=== PATIENT | male | born 1950 | race Caucasian/White ===

== ENCOUNTER 2020-09-29 16:03 | Inpatient (IN) | payer MEDICARE ==
[2020-09-29] MEDS ORDERED: ACETAMINOPHEN TAB 500 MG TAB PO STA (16:42)
[2020-09-29 17:06] LABS: Basophils % (A) 1 %; Eosinophils % (A) 0 %; HCT 48.7 % (39.0-53.0); HGB 15.5 gm/dL (13.0-17.5); Lymphocytes # (A) 0.6 k/uL (1.0-4.8); Lymphocytes % (A) 14 %; MCH 27.4 pg (25.0-35.0); MCHC 31.8 g/dL (31.0-37.0); MCV 86.2 fL (80.0-100.0); Mean Platelet Volume 8.2; Monocytes # (A) 0.4 k/uL (0-1.0); Monocytes % (A) 10 %; Neutrophils # (A) 3.2 k/uL (1.3-7.7); Neutrophils % (A) 73 %; Platelet Count 194 k/uL (150-450); RBC 5.65 m/uL (4.30-5.90); RDW 15.2 % (11.5-15.5); WBC 4.4 k/uL (3.8-10.6)
[2020-09-29] MEDS ORDERED: ONDANSETRON 4 MG/2 ML VIAL IVP STA (17:07)
[2020-09-29 17:18] LABS: ALT 19 U/L (4-49); AST 29 U/L (17-59); African American GFR (CKD) >90 (>60 ml/min/1.73 sqM); Albumin 4.2 g/dL (3.5-5.0); Alkaline Phosphatase 83 U/L (38-126); Anion Gap 11 mmol/L; Blood Urea Nitrogen 19 mg/dL (9-20); C Reactive Protein 54.4 mg/L (<10.0); Calcium 9.3 mg/dL (8.4-10.2); Carbon Dioxide 25 mmol/L (22-30); Chloride 100 mmol/L (98-107); Glucose 110 mg/dL (74-99); LDH 530 U/L (313-618); Magnesium 1.7 mg/dL (1.6-2.3); Non-African American GFR(CKD) 88 (>60 ml/min/1.73 sqM); Potassium 4.1 mmol/L (3.5-5.1); Sodium 136 mmol/L (137-145); Total Bilirubin 0.5 mg/dL (0.2-1.3)
[2020-09-29 17:30] LABS: D-Dimer 0.39 mg/L FEU (<0.60); INR 0.9 (<1.2); Partial Thromboplastin Time 26.7 sec (22.0-30.0); Prothrombin Time 9.6 sec (9.0-12.0)
--- NOTE | 2020-09-29 17:31 | XR ---
EXAMINATION TYPE: XR chest 1V portable DATE OF EXAM: 09/29/2020 COMPARISON: NONE HISTORY: Fever TECHNIQUE: Single frontal view of the chest is obtained. FINDINGS: Technique is somewhat apical lordotic and rotated, lung volumes are low. There are overlyin g cardiac leads. There is no pleural effusion or pneumothorax seen. Question some patchy density charis aterally. The cardiac silhouette size is within normal limits. The osseous structures are intact. IMPRESSION: Correlate for possible pneumonia, expiratory rotated exam
--- NOTE | 2020-09-29 17:51 | ED ---
General Adult HPI - General Chief complaint: Headache Stated complaint: NVD Time Seen by Provider: 09/29/20 16:41 Source: patient, family Mode of arrival: wheelchair Limitations: no limitations - History of Present Illness Initial comments: Dictation was produced using [employer] dictation software. please excuse any grammatical, word or spelling errors. This patient was cared for during a federal and state declared state of emergency secondary to Covid 19 Chief Complaint: 62-year-old male presents with 3 days of nasal congestion, body aches and constitutional symptoms. History of Present Illness: It is a 62-year-old male. He presents today with 3 days of symptoms of body aches, chills and fevers. He is also complaining of some nausea. Denies any vomiting. Patient states she's been symptomatic for the last 3 days. Yesterday he had a headache. He was seen at [facility] recently where he was discharged with sinus antibiotics. He was not tested for rotavirus at that time. Patient states his symptoms are persistent , they intubated emergency department. Patient denies any pain symptoms at the moment. Denies any abdominal pain. States his main symptom is nasal congestion. Denies any sore throat or runny nose. The ROS documented in this emergency department record has been reviewed and confirmed by me. Those systems with pertinent positive or negative responses have been documented in the HPI. All other systems are other negative and/or noncontributory. PHYSICAL EXAM: General Impression: Alert and oriented x3, not in acute distress HEENT: Normocephalic atraumatic, extra-ocular movements intact, pupils equal and reactive to light bilaterally, dry mucous membranes Cardiovascular: Heart regular rate and rhythm Chest: Able to complete full sentences, no retractions, no tachypnea Abdomen: abdomen soft, non-tender, non-distended, no organomegaly Musculoskeletal: Pulses present and equal in all extremities, no peripheral edema Motor: no focal deficits noted Neurological: CN II-XII grossly intact, no focal motor or sensory deficits noted Skin: Intact with no visualized rashes Psych: Normal affect and mood ED course: 70-year-old male presents with chief complaint of constitutional symptoms. He was seen recently at [facility] review is given antibiotics to treat possible sinus or upper respiratory infection. Vital signs upon arrival shows tachycardia 11.4, heart rate of 103, rest of vital signs within acceptable limits. Laboratory evaluation obtained. CBC unremarkable. Lymphocytosis of 0.6 mildly depressed. Coag panel negative. D-dimer 0.39. Metabolic panel is unremarkable. Influenza is negative. Chest x-ray shows patchy densities bilaterally. Clinical presentation concerning for possible pneumonia versus Covid 19. coronavirus testing pending. Patient given ceftriaxone and azithromycin. She also given 6 mg of IV Decadron. Patient be admitted case is discussed with Dr. Staples's nurse practitioner who is willing to accept patients care. EKG interpretation: Ventricular rate 90, normal sinus rhythm,. Interval 1:30, QRS 120, QTC 472. No MO prolongation, no QTC prolongation, no ST or T-wave changes noted. No old EKG for comparison. Overall this EKG is nonspecific. - Related Data Home Medications Medication Instructions Recorded Confirmed Amoxicillin/Potassium Clav 1 tab PO BID 09/29/20 09/29/20 [Augmentin 875-125 Tablet] Famotidine 20 mg PO BID 09/29/20 09/29/20 LORazepam [Ativan] 0.5 mg PO BID PRN 09/29/20 09/29/20 Loratadine 10 mg PO DAILY 09/29/20 09/29/20 metHOTREXate sodium [Methotrexate] 20 mg PO ORTA 09/29/20 09/29/20 predniSONE 2.5 mg PO BID 09/29/20 09/29/20 Allergies Allergy/AdvReac Type Severity Reaction Status Date / Time No Known Allergies Allergy Verified 09/29/20 18:13 Review of Systems ROS Statement: Those systems with pertinent positive or pertinent negative responses have been documented in the HPI. ROS Other: All systems not noted in ROS Statement are negative. Past Medical History Past Medical History: GERD/Reflux, Hypertension Additional Past Medical History / Comment(s): polymyalgia rheumatica History of Any Multi-Drug Resistant Organisms: None Reported Past Surgical History: Hernia Repair, Orthopedic Surgery Past Psychological History: No Psychological Hx Reported Smoking Status: Never smoker Past Alcohol Use History: None Reported Past Drug Use History: None Reported General Exam Limitations: no limitations Course Vital Signs 09/29/20 09/29/20 09/29/20 16:13 17:00 18:00 Temperature 101.4 F H 99.2 F Pulse Rate 103 H 92 82 Respiratory 22 18 18 Rate Blood Pressure 154/69 132/109 136/98 O2 Sat by Pulse 99 100 99 Oximetry Medical Decision Making - Lab Data Result diagrams: 09/29/20 16:48 09/29/20 16:48 Lab Results 09/29/20 09/29/20 09/29/20 Range/Units 16:48 16:48 16:48 WBC 4.4 (3.8-10.6) k/uL RBC 5.65 (4.30-5.90) m/uL Hgb 15.5 (13.0-17.5) gm/dL Hct 48.7 (39.0-53.0) % MCV 86.2 (80.0-100.0) fL MCH 27.4 (25.0-35.0) pg MCHC 31.8 (31.0-37.0) g/dL RDW 15.2 (11.5-15.5) % Plt Count 194 (150-450) k/uL Neutrophils % 73 % Lymphocytes % 14 % Monocytes % 10 % Eosinophils % 0 % Basophils % 1 % Neutrophils # 3.2 (1.3-7.7) k/uL Lymphocytes # 0.6 L (1.0-4.8) k/uL Monocytes # 0.4 (0-1.0) k/uL Eosinophils # 0.0 (0-0.7) k/uL Basophils # 0.0 (0-0.2) k/uL PT 9.6 (9.0-12.0) sec INR 0.9 (<1.2) APTT 26.7 (22.0-30.0) sec D-Dimer 0.39 (<0.60) mg/L FEU Sodium 136 L (137-145) mmol/L Potassium 4.1 (3.5-5.1) mmol/L Chloride 100 (98-107) mmol/L Carbon Dioxide 25 (22-30) mmol/L Anion Gap 11 mmol/L BUN 19 (9-20) mg/dL Creatinine 0.89 (0.66-1.25) mg/dL Est GFR (CKD-EPI)AfAm >90 (>60 ml/min/1.73 sqM) Est GFR (CKD-EPI)NonAf 88 (>60 ml/min/1.73 sqM) Glucose 110 H (74-99) mg/dL Plasma Lactic Acid Kalia (0.7-2.0) mmol/L Calcium 9.3 (8.4-10.2) mg/dL Magnesium 1.7 (1.6-2.3) mg/dL Total Bilirubin 0.5 (0.2-1.3) mg/dL AST 29 (17-59) U/L ALT 19 (4-49) U/L Alkaline Phosphatase 83 (38-126) U/L Lactate Dehydrogenase 530 (313-618) U/L C-Reactive Protein 54.4 H (<10.0) mg/L Total Protein 7.0 (6.3-8.2) g/dL Albumin 4.2 (3.5-5.0) g/dL Influenza Type A RNA (Not Detectd) Influenza Type B (PCR) (Not Detectd) 09/29/20 09/29/20 Range/Units 16:48 16:48 WBC (3.8-10.6) k/uL RBC (4.30-5.90) m/uL Hgb (13.0-17.5) gm/dL Hct (39.0-53.0) % MCV (80.0-100.0) fL MCH (25.0-35.0) pg MCHC (31.0-37.0) g/dL RDW (11.5-15.5) % Plt Count (150-450) k/uL Neutrophils % % Lymphocytes % % Monocytes % % Eosinophils % % Basophils % % Neutrophils # (1.3-7.7) k/uL Lymphocytes # (1.0-4.8) k/uL Monocytes # (0-1.0) k/uL Eosinophils # (0-0.7) k/uL Basophils # (0-0.2) k/uL PT (9.0-12.0) sec INR (<1.2) APTT (22.0-30.0) sec D-Dimer (<0.60) mg/L FEU Sodium (137-145) mmol/L Potassium (3.5-5.1) mmol/L Chloride (98-107) mmol/L Carbon Dioxide (22-30) mmol/L Anion Gap mmol/L BUN (9-20) mg/dL Creatinine (0.66-1.25) mg/dL Est GFR (CKD-EPI)AfAm (>60 ml/min/1.73 sqM) Est GFR (CKD-EPI)NonAf (>60 ml/min/1.73 sqM) Glucose (74-99) mg/dL Plasma Lactic Acid Kalia 1.4 (0.7-2.0) mmol/L Calcium (8.4-10.2) mg/dL Magnesium (1.6-2.3) mg/dL Total Bilirubin (0.2-1.3) mg/dL AST (17-59) U/L ALT (4-49) U/L Alkaline Phosphatase (38-126) U/L Lactate Dehydrogenase (313-618) U/L C-Reactive Protein (<10.0) mg/L Total Protein (6.3-8.2) g/dL Albumin (3.5-5.0) g/dL Influenza Type A RNA Not Detected (Not Detectd) Influenza Type B (PCR) Not Detected (Not Detectd) Disposition Clinical Impression: Pneumonia Disposition: ADMITTED IP TO THIS [facility] Condition: Fair Referrals: Cooper Staples MD [Primary Care Provider] - 1-2 days Decision Time: 18:46
[2020-09-29] MEDS ORDERED: cefTRIAXone IN SWFI 1,000 MG/10 ML SYRINGE IVP STA (18:06)
[2020-09-29] MEDS ORDERED: AZITHROMYCIN 500 MG in SODIUM CHLORIDE 0.9% 250 ML IVPB STA (18:06)
[2020-09-29] MEDS ORDERED: CODEINE 30 MG TAB PO STA (18:35)
[2020-09-29] MEDS ORDERED: METOCLOPRAMIDE 5 MG/ML 2 ML VIAL IVP STA (18:37)
[2020-09-29] MEDS ORDERED: NALOXONE 0.4 MG/ML 1 ML VIAL IV PRN (18:43)
[2020-09-29] MEDS ORDERED: ACETAMINOPHEN TAB 325 MG TAB PO PRN (18:43)
[2020-09-29] MEDS ORDERED: SODIUM CHLORIDE 0.9% 1,000 ML IV SCH (18:45)
[2020-09-29] MEDS ORDERED: MORPHINE SULFATE 4 MG/ML SYRINGE IV STA (19:29)
[2020-09-29] MEDS: DEXAMETHASONE SOD PHOSPHATE 10 MG/ML 1 ML VIAL IV SCH (21:02)
[2020-09-29] MEDS ORDERED: LORazepam 2 MG/ML INJ IV PRN (21:34)
[2020-09-29 23:49] LABS: Ferritin 133.9 ng/mL (22.0-322.0)
[2020-09-30] MEDS ORDERED: ONDANSETRON 4 MG/2 ML VIAL IVP STA (05:11)
[2020-09-30] MEDS ORDERED: METOCLOPRAMIDE 5 MG/ML 2 ML VIAL IVP PRN (07:17)
[2020-09-30] MEDS ORDERED: PNEUMONIA PROTOCOL UTILIZED 1 EACH MISC PO PRN (07:27)
[2020-09-30] MEDS: DEXAMETHASONE SOD PHOSPHATE 10 MG/ML 1 ML VIAL IV SCH (10:08)
--- NOTE | 2020-09-30 10:09 | P.HPIM ---
History of Present Illness H&P Date: 09/30/20 Chief Complaint: Generalized malaise 70-year-old male presented to the emergency room for complaint of generalized malaise with associated fevers, chills, nausea, and headache. Patient additional complaint of intermittent shortness of breath.patient stated these symptoms have been lasting for 3 days, [facility] for a sinus infection. Upon arrival to the emergency department patient was febrile, tachycardic, and short of breath. Extensive diagnostic workup for the emergency department revealed pneumonia. Review of Systems Constitutional: Reports chills, Reports fever, Reports sweats, Reports weakness Ears, nose, mouth and throat: Reports sinus pain Cardiovascular: Reports shortness of breath Respiratory: Reports congestion, Reports cough with sputum Gastrointestinal: Reports nausea, Reports vomiting Musculoskeletal: Reports muscle weakness (Generalized) Neurological: Reports weakness Psychiatric: Reports anxiety Endocrine: Reports fatigue Past Medical History Past Medical History: GERD/Reflux, Hypertension Additional Past Medical History / Comment(s): polymyalgia rheumatica History of Any Multi-Drug Resistant Organisms: None Reported Past Surgical History: Hernia Repair, Orthopedic Surgery Past Anesthesia/Blood Transfusion Reactions: No Reported Reaction Past Psychological History: No Psychological Hx Reported Smoking Status: Never smoker Past Alcohol Use History: None Reported Past Drug Use History: None Reported Medications and Allergies Home Medications and Allergies Comment(s): Home medications and ALLERGIES reviewed Home Medications Medication Instructions Recorded Confirmed Type Amoxicillin/Potassium Clav 1 tab PO BID 09/29/20 09/29/20 History [Augmentin 875-125 Tablet] Famotidine 20 mg PO BID 09/29/20 09/29/20 History LORazepam [Ativan] 0.5 mg PO BID PRN 09/29/20 09/29/20 History Loratadine 10 mg PO DAILY 09/29/20 09/29/20 History metHOTREXate sodium [Methotrexate] 20 mg PO ORTA 09/29/20 09/29/20 History predniSONE 2.5 mg PO BID 09/29/20 09/29/20 History Allergies Allergy/AdvReac Type Severity Reaction Status Date / Time No Known Allergies Allergy Verified 09/29/20 18:13 Physical Exam Vitals: Vital Signs Temp Pulse Pulse Resp BP BP Pulse Ox 09/30/20 07:00 97.8 F 111 H 19 139/95 97 09/30/20 05:00 99.2 F 112 H 16 152/95 96 09/30/20 01:00 98.2 F 96 18 160/91 97 09/29/20 21:00 98 16 142/92 97 09/29/20 18:48 113 H 145/83 09/29/20 18:00 99.2 F 82 18 136/98 99 09/29/20 17:00 92 18 132/109 100 09/29/20 16:13 101.4 F H 103 H 22 154/69 99 Intake and Output 09/29/20 09/30/20 09/30/20 22:59 06:59 14:59 Output Total 1 Balance -1 Output: Urine 1 Other: Weight 90.718 kg - Constitutional General appearance: morbidly obese - EENT Eyes: EOMI, PERRLA ENT: pharyngeal erythema Ears: bilateral: normal - Respiratory Respiratory: bilateral: rhonchi (bilateral posterior bases) - Cardiovascular Sinus tachycardia Heart rate: 111 Rhythm: regular Heart sounds: normal: S1, S2 - Gastrointestinal General gastrointestinal: hyperactive bowel sounds, tenderness Localized gastrointestinal: tender: diffuse - Integumentary Integumentary: decreased turgor, pale - Neurologic Neurologic: CNII-XII intact - Musculoskeletal Musculoskeletal: generalized weakness - Psychiatric Psychiatric: A&O x's 3, appropriate affect, intact judgment & insight Results CBC & Chem 7: 09/29/20 16:48 09/29/20 16:48 Labs: Abnormal Lab Results - Last 24 Hours (Table) 09/29/20 09/29/20 Range/Units 16:48 16:48 Lymphocytes # 0.6 L (1.0-4.8) k/uL Sodium 136 L (137-145) mmol/L Glucose 110 H (74-99) mg/dL C-Reactive Protein 54.4 H (<10.0) mg/L Chest x-ray: report reviewed Thrombosis Risk Factor Assmnt - Choose All That Apply Each Factor Represents 1 point: Obesity (BMI >25) Each Risk Factor Represents 2 Points: Age 61-74 years Thrombosis Risk Factor Assessment Total Risk Factor Score: 3 Thrombosis Risk Factor Assessment Level: Moderate Risk Assessment and Plan Assessment: Pneumonia Abdominal pain with associated nausea and vomiting Polymyalgia rheumatica Hypertension GERD Obesity Plan: Pneumoniacontinue antibiotic therapy Abdominal pain with nausea vomiting continue IV hydration and antiemetics as needed Continue medical management Time with Patient: Greater than 30
[2020-09-30] MEDS ORDERED: PANTOPRAZOLE 40 MG/10 ML VIAL IVP SCH (12:45)
[2020-09-30] MEDS: SODIUM CHLORIDE 0.9% 1,000 ML IV SCH ×2 (17:09→17:14)
[2020-09-30] MEDS ORDERED: AZITHROMYCIN 500 MG in SODIUM CHLORIDE 0.9% 250 ML IVPB SCH (18:00)
[2020-09-30] MEDS: lisinopriL 20 MG TAB PO SCH (22:09)
[2020-10-01] MEDS: SODIUM CHLORIDE 0.9% 1,000 ML IV SCH ×2 (05:43→15:52)
[2020-10-01 06:26] LABS: Basophils % (A) 0 %; Eosinophils % (A) 0 %; HCT 42.5 % (39.0-53.0); HGB 13.8 gm/dL (13.0-17.5); Lymphocytes % (A) 13 %; MCH 28.4 pg (25.0-35.0); MCHC 32.5 g/dL (31.0-37.0); MCV 87.3 fL (80.0-100.0); Mean Platelet Volume 7.6; Monocytes # (A) 0.6 k/uL (0-1.0); Monocytes % (A) 8 %; Neutrophils # (A) 5.7 k/uL (1.3-7.7); Neutrophils % (A) 77 %; Platelet Count 217 k/uL (150-450); RBC 4.87 m/uL (4.30-5.90); RDW 14.7 % (11.5-15.5); WBC 7.5 k/uL (3.8-10.6)
[2020-10-01 08:04] VITALS: RESP 17
[2020-10-01] MEDS: lisinopriL 20 MG TAB PO SCH (08:28)
[2020-10-01] MEDS: DEXAMETHASONE SOD PHOSPHATE 10 MG/ML 1 ML VIAL IV SCH (08:28)
--- NOTE | 2020-10-01 08:55 | P.PN ---
Subjective Progress Note Date: 10/01/20 Principal diagnosis: Community acquired pneumonia Abdominal pain nausea and vomiting 70-year-old male resting in bed comfortably. Denies shortness of breath, fever, chills, and decreased nausea and vomiting. Patient denies any complaints at this time Objective - Vital Signs Vital signs: Vital Signs Temp 98.4 F 10/01/20 07:00 Pulse 90 10/01/20 07:00 Resp 17 10/01/20 07:00 BP 167/80 10/01/20 07:00 Pulse Ox 94 L 10/01/20 07:00 Intake & Output 09/30/20 10/01/20 10/01/20 18:59 06:59 18:59 Intake Total 60 Output Total 300 Balance -240 Weight 90.718 kg Intake: Intake, IV Titration 60 Amount Sodium Chloride 0.9% 1, 60 000 ml @ 20 mls/hr IV . Q24H [facility] Rx#:[id number] Output: Urine 300 Other: Voiding Method Urinal Urinal # Voids 2 # Bowel Movements 1 - Constitutional General appearance: Present: obese - EENT Eyes: Present: EOMI, PERRLA ENT: Present: normal oropharynx Ears: bilateral: normal - Neck Carotids: bilateral: upstroke normal Thyroid: bilateral: normal size - Respiratory Respiratory: bilateral: diminished (Posterior bases) - Cardiovascular Details: Normal sinus rhythm with a right bundle branch Heart rate: 84 Rhythm: regular Heart sounds: normal: S1, S2 - Gastrointestinal General gastrointestinal: Present: normal bowel sounds - Integumentary Integumentary: Present: normal, normal turgor - Neurologic Neurologic: Present: CNII-XII intact - Musculoskeletal Musculoskeletal: Present: gait normal - Psychiatric Psychiatric: Present: A&O x's 3, appropriate affect, intact judgment & insight - Labs CBC & Chem 7: 10/01/20 05:58 09/29/20 16:48 Labs: Microbiology - Last 24 Hours (Table) 09/29/20 16:48 Blood Culture - Preliminary Blood No Growth after 24 hours - Imaging and Cardiology Chest x-ray: report reviewed Assessment and Plan Assessment: Pneumonia Abdominal pain with associated nausea and vomiting Polymyalgia rheumatica Hypertension GERD Obesity Plan: Pneumoniacontinue antibiotic therapy Abdominal pain with nausea vomiting continue IV hydration and antiemetics as needed Covid 19test pending Continue medical management Time with Patient: Less than 30
[2020-10-01] MEDS ORDERED: PANTOPRAZOLE 40 MG TABLET PO SCH (09:00)
[2020-10-01 10:06] LABS: African American GFR (CKD) 106.4 (60.0-200.0); Albumin 4.1 g/dL (3.80-4.90); Albumin/Globulin Ratio 2.05 (1.60-3.17); Anion Gap 10.4 mmol/L (4.00-12.00); Calcium 8.8 mg/dL (8.7-10.3); Carbon Dioxide 24.6 mmol/L (21.6-31.8); Non-African American GFR(CKD) 91.8 (60.0-200.0); Potassium 3.7 mmol/L (3.5-5.5); Total Bilirubin 0.3 mg/dL (0.2-1.2); Total Protein 6.1 g/dL (6.2-8.2)
[2020-10-01 14:28] VITALS: BMI 30.4
[2020-10-01 15:29] VITALS: BP 138/80; PULSE 85; TEMP 98.6
--- NOTE | 2020-10-02 09:06 | P.DS ---
Providers Date of admission: 09/29/20 18:43 Expected date of discharge: 10/01/20 Attending physician: Cooper Staples Consults: None noted Primary care physician: Cooper Staples - Discharge Diagnosis(es) (1) Pneumonia Patient received IV antibiotics for community-acquired pneumonia amuck improved during hospital stay patient discharged on tweak where pneumonia pathway of oral antibiotics Status: Resolved Priority: Medium Hospital Course: Patient was sent to the emergency department for further evaluation recently see n prior to admission at [facility] in the emergency department and diagnosed with acute sinusitis and emergency room dilation as x-ray revealed [facility] pneumonia. Patient placed on IV antibiotics, tolerated patient's associated symptoms was abdominal pain with nausea and vomitingcontrolled with antiemetics and IV hydration patient sent home on azithromycin and Omnicef for community acquired pneumonia. Patient to follow-up in office in 1-2 days Assessment: Community-acquired pneumonia Abdominal painassociated nausea vomitingresolved Hypertension Hyperlipidemia GERD Anxiety Asthma Polymyalgia, Health Concerns: None noted Pertinent Studies: Chest x-rayrevealing pneumonia Procedures: None noted Patient Condition at Discharge: Fair Plan - Discharge Summary Discharge Rx Participant: Yes New Discharge Prescriptions: New Aspirin EC [Ecotrin Low Dose] 81 mg PO DAILY #30 tablet. Cefdinir [Omnicef] 300 mg PO Q12HR #10 capsule Albuterol Sulfate [Proair Digihaler] 2 puff INHALATION Q6H PRN #1 inhaler PRN Reason: Wheezing lisinopriL [Zestril] 20 mg PO DAILY #30 tab Azithromycin [Zithromax Z-pack (6 tabs)] 250 mg PO DIRECTED 5 Days #6 tab Continue Loratadine 10 mg PO DAILY LORazepam [Ativan] 0.5 mg PO BID PRN PRN Reason: Anxiety metHOTREXate sodium [Methotrexate] 20 mg PO ORTA Famotidine 20 mg PO BID predniSONE 2.5 mg PO BID Discontinued Amoxicillin/Potassium Clav [Augmentin 875-125 Tablet] 1 tab PO BID Discharge Medication List Famotidine 20 mg PO BID 09/29/20 [History] LORazepam [Ativan] 0.5 mg PO BID PRN 09/29/20 [History] Loratadine 10 mg PO DAILY 09/29/20 [History] metHOTREXate sodium [Methotrexate] 20 mg PO ORTA 09/29/20 [History] predniSONE 2.5 mg PO BID 09/29/20 [History] Albuterol Sulfate [Proair Digihaler] 2 puff INHALATION Q6H PRN #1 inhaler 10/01/20 [Rx] Aspirin EC [Ecotrin Low Dose] 81 mg PO DAILY #30 tablet.dr 10/01/20 [Rx] Azithromycin [Zithromax Z-pack (6 tabs)] 250 mg PO DIRECTED 5 Days #6 tab 10/01/20 [Rx] Cefdinir [Omnicef] 300 mg PO Q12HR #10 capsule 10/01/20 [Rx] lisinopriL [Zestril] 20 mg PO DAILY #30 tab 10/01/20 [Rx] Follow up Appointment(s)/Referral(s): Cooper Staples MD [Primary Care Provider] - 1-2 days Discharge Disposition: HOME SELF-CARE
--- NOTE | 2020-10-06 19:03 | CDI ---
Documentation Clarification Form Date: 10/06/20 From: Justina Stokes Phone: If you have a question about this query, please contact Adrianna Rivera [employer] at [phone] between 8am and 5pm. Admit Date: 09/29/20 Discharge Date: 10/01/20 Patient Name: Lobo Govea Visit Number: [id number] ATTENTION: The Clinical Documentation Specialists (CDI) and [facility] Coding Staff appreciate your assistance in clarifying documentation. Please respond to the clarification below the line at the bottom and electronically sign. The CDI & [facility] Coding staff will review the response and follow-up if needed. Please note: Queries are made part of the Legal Health Record. If you have any questions, please contact the author of this message via ITS. Dear Dr. Staples Coding guidelines do not allow coding professionals to code based on laboratory results; therefore, your input is requested. The COVID-19 test obtained on 09/29/20 was reported as Positive after discharge. Per case summary the patient presented to the ED with nasal congestion, body aches and constitutional symptoms. Patient was [facility] at [facility] in the ED and diagnosed with acute sinusitis. Community acquired pneumonia was documented in the assessment of the discharge summary. Patient history/risk factors: Acute sinusitis, morbid obesity, polymyalgia rheumatica Clinical Indicators: Patient reported: Nasal congestion, cough with sputum, shortness of breath, abdominal pain, nausea vomiting CXR: Correlate for possible pneumonia. VS in ED Triage: T: 101.4 , P: 103, R 22, Sat 99% on room air WBC: 4.4 Influenza test obtained 09/29/20 reported as negative . Treatment: IV Zithromax In order to capture the severity of condition, please clarify the COVID-19 status: COVID-19 ruled out COVID-19 confirmed Other, please specify Unable to determine COVID -19 Confirmed MTDD
== END 2020-10-01 17:33 | disposition home or self-care (01) | DRG 177 ==
LOC: EC 16:03 → 4SSUR 18:43
PROVIDERS: ADMIT Family Medicine; ATTEND Family Medicine
DX: U07.1 COVID-19 (principal); J12.89 Other viral pneumonia; K21.9 Gastro-esophageal reflux disease without esophagitis; E66.01 Morbid (severe) obesity due to excess calories; I10 Essential (primary) hypertension; M35.3 Polymyalgia rheumatica; R10.9 Unspecified abdominal pain; R11.2 Nausea with vomiting, unspecified; Z68.30 Body mass index [BMI] 30.0-30.9, adult; Z79.899 Other long term (current) drug therapy; Z98.890 Other specified postprocedural states; Z87.19 Personal history of other diseases of the digestive system; Z87.39 Personal history of other diseases of the musculoskeletal system and connective tissue
CPT/HCPCS: 36415; 71045; 80053; 82728; 83605; 83615; 83735; 84145; 85025; 85379; 85610; 85730; 86140; 87040; 87324; 87502; 93005; 96365; 96366; 96367; 96375; 99285

== ENCOUNTER → 2021-08-25 | Outpatient (CLI) | payer MEDICARE ==
--- NOTE | 2021-08-26 07:18 | XR ---
EXAMINATION TYPE: XR shoulder complete BILAT DATE OF EXAM: 08/25/2021 CLINICAL HISTORY: pain TECHNIQUE: Three views of the bilateral shoulders are obtained. COMPARISON: None FINDINGS: There is no acute fracture/dislocation evident. The acromioclavicular and glenohumeral josé miguel int spaces appear moderately narrowed. The visualized ribs are intact and unremarkable. IMPRESSION: 1. There is no acute fracture or dislocation. ICD 10 NO FRACTURE, INITIAL EVALUATION
--- NOTE | 2021-08-26 07:52 | XR ---
EXAMINATION TYPE: XR Hip Bilateral Complete DATE OF EXAM: 08/25/2021 CLINICAL HISTORY: pain TECHNIQUE: AP and frogleg views of the bilateral hips are obtained. COMPARISON: None. FINDINGS: There is no acute fracture/dislocation evident. The joint space appears mildly narrowed. The overlying soft tissue appears unremarkable. IMPRESSION: 1. There is no acute fracture or dislocation. ICD 10 NO FRACTURE, INITIAL EVALUATION
== END | disposition home or self-care (01) ==
LOC: RADXRMAIN 16:05
PROVIDERS: ATTEND Family Medicine
DX: M25.511 Pain in right shoulder (principal); M25.512 Pain in left shoulder; M25.551 Pain in right hip; M25.552 Pain in left hip
CPT/HCPCS: 73521

== ENCOUNTER → 2021-09-04 | Outpatient (CLI) | payer MEDICARE ==
[2021-09-04 13:03] LABS: African American GFR (CKD) >90 (>60 ml/min/1.73 sqM); Blood Urea Nitrogen 15 mg/dL (9-20); Non-African American GFR(CKD) >90 (>60 ml/min/1.73 sqM)
--- NOTE | 2021-09-07 13:24 | CT ---
EXAMINATION TYPE: CT abdomen pelvis w con DATE OF EXAM: 09/04/2021 COMPARISON: NONE HISTORY: 71-year-old male R1 0.9 Generalized pain with leg swelling TECHNIQUE: Contiguous axial scanning of the abdomen and pelvis following administration of 100 ml Omn ipaque 300 IV contrast. Delayed images through the kidneys and coronal/sagittal reconstructions perf ormed. CT DLP: 1415.6 mGycm Automated exposure control for dose reduction was used. FINDINGS: Heart is borderline enlarged without pericardial effusion. Hazy lower lung opacity may represent gene ralized atelectasis. No pleural effusion. There is mild circumferential wall thickening of the distal esophagus. 7 mm hypodensity mid hepatic dome too small for accurate CT characterization, likely cyst. The liver is borderline enlarged at 17.1 cm. Portal venous system is patent. No biliary ductal dilatation. Gallbladder, adrenal glands, kidneys, spleen, and pancreas within normal limits. Bilateral extrarenal pelves noted. No dilated small bowel, free fluid, free air. A couple prominent lower left para-aortic lymph nodes measure up to 1.0 cm, for example, axial image 59. Small fatty umbilical hernia. Normal appendix. Oral contrast progressed into the descending colon. There is mild stool burden. Mild ly redundant sigmoid colon. Mild diverticular change of the sigmoid colon. No pericolonic inflammator y change. The distal third left ureter shows a couple of consecutive focal fusiform dilatations up to 1.3 cm in caliber. No abnormal enhancement is seen in this region. Mild circumferential bladder wall thickening probably chronic bladder wall hypertrophy. There is a mass protruding into the left paramedian posterior bladder base measuring up to 4.4 x 3.8 x 2.6 cm. This may be contiguous with the prostate gland which is also enlarged measuring up to 5.1 c m wide. There are a couple borderline-sized left external iliac chain lymph nodes measuring up to 1.1 cm. Multiple pelvic phleboliths. No abnormal fluid collection in the pelvis. Bones: Mild degenerative change of the hips. Sclerotic focus anterior medial left iliac bone likely a bone island. There are bilateral L4 pars defects with a grade 2 anterolisthesis at L4-L5 and associa kassie severe degenerative disc disease. Of note, the anterior inferior corner of the L4 vertebral body abuts the posterior margin of the left common iliac vein which may be slightly narrowed, refer to sag ittal image 66 and axial image 64. IMPRESSION: 1. A MASS PROTRUDING INTO THE LEFT PARAMEDIAN BLADDER BASE MEASURING UP TO 4.4 CM. THIS MAY BE CONTIG UOUS WITH THE PROSTATE GLAND WHICH IS ALSO ENLARGED MEASURING UP TO 5.1 CM. FURTHER APPROPRIATE LINDA P FOR BPH VERSUS PROSTATE CANCER VERSUS A UROTHELIAL NEOPLASM IS RECOMMENDED. WE ARE FAVORING BPH AT THIS TIME. 2. A COUPLE BORDERLINE SIZED 1 CM LEFT PERIAORTIC LYMPH NODES AND A COUPLE BORDERLINE ENLARGED LEFT E XTERNAL ILIAC CHAIN LYMPH NODES MEASURING UP TO 1.1 CM ARE NONSPECIFIC AND MAY BE REACTIVE. CORRELATE WITH PSA VALUES AND APPROPRIATE FOLLOW-UP TO ENSURE STABILITY/RESOLUTION. 3. A COUPLE CONSECUTIVE FOCAL FUSIFORM DILATATIONS OF THE DISTAL THIRD LEFT URETER UP TO 1.3 CM. NO A BNORMAL ENHANCEMENT OR SOFT TISSUE IS SEEN IN THIS REGION. 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 CORRELATE WITH URINE CYTOLOGY. DIRECT MEASUREMENTS WERE MADE WITH A NEW FLUID IN THE VISUALIZATION INDICATED. A 3 - 6 MONTH FOLLOW-UP CT UROGRAM CAN ALSO BE CONSIDERED. 4. MILD CIRCUMFERENTIAL WALL THICKENING OF THE DISTAL ESOPHAGUS COULD REFLECT AN UNDERLYING SMALL HIA NATALIA HERNIA OR ESOPHAGITIS. 5. 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 GIVEN THE PATIENT'S REPORTED LEG SWELLING, CONSIDER THE POSSIBILITY OF MAY THURNER S YNDROME AT THIS LEVEL (IN PARTICULAR IF THERE IS LEFT LEG SWELLING). .
== END | disposition home or self-care (01) ==
LOC: RADCTMAIN 11:57
PROVIDERS: ATTEND Nurse Practitioner
DX: N32.89 Other specified disorders of bladder (principal); N40.0 Benign prostatic hyperplasia without lower urinary tract symptoms; R59.0 Localized enlarged lymph nodes
CPT/HCPCS: 82565; 84520; 74177; 36415; Q9967

== ENCOUNTER → 2021-09-23 | Outpatient (CLI) | payer MEDICARE ==
--- NOTE | 2021-09-23 16:03 | US ---
EXAMINATION TYPE: US venous doppler duplex LE DATE OF EXAM: 09/23/2021 7:51 AM COMPARISON: NONE CLINICAL HISTORY: Z13.6 Encounter for screening for cardiovascular. Left leg swelling SIDE PERFORMED: Bilateral TECHNIQUE: The lower extremity deep venous system is examined utilizing real time linear array sonog jose with graded compression, doppler sonography and color-flow sonography. VESSELS IMAGED: Common Femoral Vein Deep Femoral Vein Greater Saphenous Vein * Femoral Vein Popliteal Vein Small Saphenous Vein * Proximal Calf Veins (* superficial vessels) Right Leg: Appears negative for DVT Left Leg: Appears negative for DVT IMPRESSION: 1. Bilateral lower extremity ultrasound negative for deep venous thrombosis.
--- NOTE | 2021-09-23 16:05 | US ---
EXAMINATION TYPE: US duplex aorta DATE OF EXAM: 09/23/2021 COMPARISON: NONE CLINICAL HISTORY: Z13.6 Encounter for screening for cardiovascular. EXAM MEASUREMENTS: Abdominal Aorta: Proximal: not seen due to overlying midline bowel gas Mid: not seen due to overlying midline bowel gas Distal: 1.8 x 1.8cm Right Iliac: 1.0 x 1.0cm Left Iliac: 1.1 x 0.9cm IMPRESSION: 1. Limited abdomen aorta ultrasound. No obvious aneurysm within the [id number]. Consider follow-up repeat ultrasound or CT for better evaluation.
== END | disposition home or self-care (01) ==
LOC: RADUSWWP 07:09
PROVIDERS: ATTEND Family Medicine
DX: Z13.6 Encounter for screening for cardiovascular disorders (principal); R22.42 Localized swelling, mass and lump, left lower limb
CPT/HCPCS: 93970; 93979

== ENCOUNTER → 2021-10-13 | Outpatient (CLI) | payer MEDICARE ==
--- NOTE | 2021-10-13 15:29 | XR ---
EXAMINATION TYPE: XR chest 2V DATE OF EXAM: 10/13/2021 COMPARISON: Chest x-ray September 29, 2020 HISTORY: Presurgical clearance. TECHNIQUE: Frontal and lateral views of the chest are obtained. FINDINGS: There is no suspicious new focal air space opacity, pleural effusion, or pneumothorax seen . Low lung volumes redemonstrated. The cardiac silhouette size is stable and upper limits of normal. The osseous structures are intact. IMPRESSION: No acute process.
[2021-10-13 16:28] LABS: Anisocytosis Moderate; Basophils % (A) 0 %; Eosinophils # (A) 0.1 k/uL (0-0.7); Eosinophils % (A) 1 %; HCT 39.5 % (39.0-53.0); HGB 12.1 gm/dL (13.0-17.5); Hypochromasia Slight; Lymphocytes # (A) 1.3 k/uL (1.0-4.8); Lymphocytes % (A) 18 %; MCH 26.1 pg (25.0-35.0); MCHC 30.5 g/dL (31.0-37.0); MCV 85.4 fL (80.0-100.0); Mean Platelet Volume 7.2; Microcytosis Slight; Monocytes # (A) 0.5 k/uL (0-1.0); Monocytes % (A) 7 %; Neutrophils % (A) 70 %; Platelet Count 292 k/uL (150-450); RBC 4.63 m/uL (4.30-5.90); RDW 20.1 % (11.5-15.5); WBC 7.2 k/uL (3.8-10.6)
[2021-10-13 16:43] LABS: Chloride 101 mmol/L (98-107); Potassium 4.6 mmol/L (3.5-5.1); Sodium 138 mmol/L (137-145)
[2021-10-13 16:44] LABS: ALT 20 U/L (4-49); AST 22 U/L (17-59); African American GFR (CKD) >90 (>60 ml/min/1.73 sqM); Albumin 4.4 g/dL (3.5-5.0); Albumin/Globulin Ratio 1.5; Alkaline Phosphatase 82 U/L (38-126); Anion Gap 11 mmol/L; Blood Urea Nitrogen 21 mg/dL (9-20); Calcium 9.9 mg/dL (8.4-10.2); Carbon Dioxide 26 mmol/L (22-30); Globulin 2.9 g/dL; Glucose 99 mg/dL (74-99); Magnesium 1.9 mg/dL (1.6-2.3); Non-African American GFR(CKD) >90 (>60 ml/min/1.73 sqM); Total Bilirubin 0.2 mg/dL (0.2-1.3); Total Protein 7.3 g/dL (6.3-8.2)
[2021-10-13 16:56] LABS: INR 0.9 (<1.2); Partial Thromboplastin Time 22.7 sec (22.0-30.0); Prothrombin Time 9.9 sec (9.0-12.0)
== END | disposition home or self-care (01) ==
LOC: LABWHC1 14:56
PROVIDERS: ATTEND Nurse Practitioner
DX: Z01.818 Encounter for other preprocedural examination (principal); M17.9 Osteoarthritis of knee, unspecified; I45.10 Unspecified right bundle-branch block; I44.4 Left anterior fascicular block; R94.31 Abnormal electrocardiogram [ECG] [EKG]
CPT/HCPCS: 36415; 71046; 80053; 83735; 85025; 85610; 85730; 87070; 93005

== ENCOUNTER → 2023-09-06 | Outpatient (CLI) | payer MEDICARE | LOC: CPPFTMAIN 08:56 | PROVIDERS: ATTEND Family Medicine | DX: J45.20 Mild intermittent asthma, uncomplicated (principal) | CPT/HCPCS: 94060; 94726; 94729 ==

== ENCOUNTER → 2024-01-27 | Outpatient (CLI) | payer MEDICARE ==
--- NOTE | 2024-01-27 17:58 | XR ---
EXAMINATION TYPE: XR chest 2V DATE OF EXAM: 01/27/2024 COMPARISON: 02/01/2023 INDICATION: Short of breath cough TECHNIQUE: Frontal and lateral views of the chest are obtained. FINDINGS: The heart size is upper limits of normal. The pulmonary vasculature is normal. The lungs are clear. No suspicious focal consolidation is evident. IMPRESSION: 1. Borderline cardiomegaly
== END | disposition home or self-care (01) ==
LOC: RADXRMAIN 12:40
PROVIDERS: ATTEND Family Medicine
DX: J18.9 Pneumonia, unspecified organism (principal); I51.7 Cardiomegaly
CPT/HCPCS: 71046; 87636